=== PATIENT | male | born 1960 | race Caucasian/White ===

== ENCOUNTER 2021-05-26 08:30 | Emergency (ER) | payer BC ==
--- NOTE | 2021-05-26 09:35 | EDM.PDOC ---
ED HPI GENERAL MEDICAL PROBLEM - General Chief Complaint: Respiratory Problem Stated Complaint: COUGH/COVID SYMPTOMS Time Seen by Provider: 05/26/21 09:15 Source of Information: Reports: Patient History Limitations: Reports: No Limitations - History of Present Illness INITIAL COMMENTS - FREE TEXT/NARRATIVE: Patient is a 60-year-old male with a past medical history of ID, A. fib, DVT presenting with a chief complaint of not feeling well. Duration of symptoms 8 to 10 days. Patient states symptoms have included fatigue, lethargy, scratchy throat, mild cough which is nonproductive. Patient has been taking some Tylenol for the symptoms without any relief. Patient specifically denies headache, difficulty breathing, shortness of breath, chest pain, abdominal pain, nausea, v omiting, diarrhea, loss of appetite, urinary symptoms. Patient did not receive Covid vaccination. No known sick contacts. Throat Pain Score (Numeric/FACES): 1 - Related Data Allergies Allergy/AdvReac Type Severity Reaction Status Date / Time amiodarone Allergy Unknown Other Verified 05/26/21 08:46 amlodipine Allergy Swelling Verified 05/26/21 08:47 lisinopril Allergy Rash Verified 05/26/21 08:46 Home Meds: Home Meds Aspirin/Calcium Carbonate/Mag [Aspirin Buffered 325 mg Tab] 325 mg PO DAILY 12/01/13 [History] Fish Oil/[place]-3 Fatty Acids [Fish Oil 1,000 MG] 1 gm PO DAILY 12/01/13 [History] Glucosam/Chondroitin/Diet Cb25 [Trepadone Capsule] 1 each PO DAILY 12/01/13 [History] Metoprolol Succinate [Toprol XL] 25 mg PO DAILY 12/01/13 [History] Multivitamin [Multi-Vitamin Daily] 1 each PO DAILY 12/01/13 [History] Nitroglycerin [Nitrostat] 0.4 mg SL PRN 12/01/13 [History] Vit C/Ascorbate Calcium,Sodium [Vitamin C] 500 mg PO DAILY 12/01/13 [History] atorvaSTATin Calcium [Atorvastatin Calcium] 20 mg PO DAILY 12/01/13 [History] Diltiazem [Cardizem CD] 180 mg PO DAILY@0600 #30 cap.cd 12/04/13 [Rx] Enoxaparin [Lovenox] 90 mg SUBCUT Q12H #4 syringe 12/04/13 [Rx] Warfarin [Coumadin] 7.5 mg PO DAILY@1800 #30 tablet 12/04/13 [Rx] Past Medical History HEENT History: Reports: Impaired Vision Other HEENT History: wears eyeglasses. Cardiovascular History: Reports: Afib, Blood Clots/VTE/DVT, High Cholesterol, Hypertension, ID Other Cardiovascular History: pericarditis. Respiratory History: Reports: Pneumonia, Recurrent Musculoskeletal History: Reports: Back Pain, Chronic, Fracture - Infectious Disease History Infectious Disease History: Reports: Measles, Mumps, Shingles - Past Surgical History Musculoskeletal Surgical History: Reports: Other (See Below) Other Musculoskeletal Surgeries/Procedures:: neck and back surgeries. Social & Family History - Tobacco Use Tobacco Use Status *Q: Never Tobacco User Second Hand Smoke Exposure: No - Caffeine Use Caffeine Use: Reports: Coffee - Alcohol Use Days Per Week of Alcohol Use: 7 Number of Drinks Per Day: 1 Total Drinks Per Week: 7 - Recreational Drug Use Recreational Drug Use: No ED ROS GENERAL - Review of Systems Review Of Systems: See Below Free Text/Narrative/Comment: In addition to that documented in the HPI above, the additional ROS was obtained: Constitutional: Denies fevers or chills Eyes: Denies vision changes ENMT: Denies sore throat CV: Denies chest pain Resp: Denies SOB GI: Denies vomiting or diarrhea : Denies painful urination MSK: Denies recent trauma Skin: Denies new rashes Neuro: Denies new numbness or tingling or weakness Endocrine: Denies unexpected weight loss Heme: Denies bleeding disorders ED EXAM, GENERAL - Physical Exam Exam: See Below Free Text/Narrative:: I have reviewed the triage vital signs Const: Well nourished, well developed, appears stated age Eyes: Pupils Equal and reactive to light bilaterally, no conjunctival injection HENT: No signs of trauma or swelling, Neck supple without meningismus CV: Regular Rate Rhythm, Warm, well-perfused extremities RESP: Unlabored respiratory effort GI: soft, non-tender, non-distended, no masses MSK: No gross deformities appreciated Skin: Warm, dry. 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 Sensation and motor function of extremities grossly intact. Psych: Appropriate mood and affect. Course - Vital Signs Last Recorded V/S: Last Vital Signs Temp 36.4 C 05/26/21 08:40 Pulse 70 10/07/21 08:40 Resp 14 05/26/21 08:40 BP 156/87 H 05/26/21 08:40 Pulse Ox 97 05/26/21 08:40 - Orders/Labs/Meds Labs: Laboratory Tests 05/26/21 05/26/21 05/26/21 Range/Units 09:00 09:54 09:54 WBC 2.63 L (4.23-9.07) K/mm3 RBC 4.61 L (4.63-6.08) M/mm3 Hgb 14.8 D (13.7-17.5) gm/dl Hct 44.8 (40.1-51.0) % MCV 97.2 H D (79.0-92.2) fl MCH 32.1 (25.7-32.2) pg MCHC 33.0 (32.2-35.5) g/dl RDW Std Deviation 47.5 H (35.1-43.9) fL Plt Count 159 L (163-337) K/mm3 MPV 9.5 (9.4-12.3) fl Neut % (Auto) 50.9 (34.0-67.9) % Lymph % (Auto) 31.6 (21.8-53.1) % [place] % (Auto) 14.8 H (5.3-12.2) % Eos % (Auto) 1.5 (0.8-7.0) Baso % (Auto) 0.8 (0.1-1.2) % Neut # (Auto) 1.34 L (1.78-5.38) K/mm3 Lymph # (Auto) 0.83 L (1.32-3.57) K/mm3 [place] # (Auto) 0.39 (0.30-0.82) K/mm3 Eos # (Auto) 0.04 (0.04-0.54) K/mm3 Baso # (Auto) 0.02 (0.01-0.08) K/mm3 Sodium 139 (136-145) mEq/L Potassium 4.4 (3.5-5.1) mEq/L Chloride 104 (98-107) mEq/L Carbon Dioxide 27 (21-32) mEq/L Anion Gap 12.4 (5-15) BUN 12 (7-18) mg/dL Creatinine 0.9 (0.7-1.3) mg/dL Est Cr Clr Drug Dosing 93.41 mL/min Estimated GFR (MDRD) > 60 (>60) mL/min BUN/Creatinine Ratio 13.3 L (14-18) Glucose 102 H (70-99) mg/dL Calcium 9.0 (8.5-10.1) mg/dL Total Bilirubin 0.4 (0.2-1.0) mg/dL AST 44 H (15-37) U/L ALT 59 (16-63) U/L Alkaline Phosphatase 65 (46-116) U/L Total Protein 7.5 (6.4-8.2) g/dl Albumin 3.5 (3.4-5.0) g/dl Globulin 4.0 gm/dL Albumin/Globulin Ratio 0.9 L (1-2) SARS-CoV-2 RNA (ELIZABETH) Positive H (NEGATIVE) Departure - Departure Time of Disposition: 10:38 Disposition: Home, Self-Care 01 Clinical Impression: COVID-19 - Discharge Information *PRESCRIPTION DRUG MONITORING PROGRAM REVIEWED*: Not Applicable *COPY OF PRESCRIPTION DRUG MONITORING REPORT IN PATIENT DANIELLE: Not Applicable Instructions: COVID-19 Referrals: PCP,None [Primary Care Provider] - Forms: ED Department Discharge Sepsis Event Note (ED) - Evaluation Sepsis Screening Result: No Definite Risk - Focused Exam Vital Signs: Vital Signs Temp Pulse Resp BP Pulse Ox 05/26/21 08:40 36.4 C 70 14 156/87 H 97 - Assessment/Plan Assessment:: Patient is a 58-year-old male presented to the emergency room with a chief complaint of generalized weakness, fatigue and scratchy throat. Patient had unremarkable ER course. Remained hemodynamically stable and no evidence of hypoxia or respiratory distress while in the emergency department symptoms concerning for COVID-19 infection. His Covid test was positive here in the emergency room. Laboratory studies are consistent with COVID-19 infection. No evidence of severe anemia, severe electrolyte abnormality or severe dehydration. At this point, patient is about 1.5 weeks out from onset of symptoms. No i ndication for other treatment at this time. Return precautions discussed. Patient urged to self quarantine and inform exposed contacts. Patient agrees with plan of care.
== END 2021-05-26 11:08 | disposition home or self-care (01) ==
LOC: JD.ED 08:30
DX: U07.1 COVID-19 (principal); I25.2 Old myocardial infarction; I48.91 Unspecified atrial fibrillation; E78.00 Pure hypercholesterolemia, unspecified; I10 Essential (primary) hypertension; Z86.718 Personal history of other venous thrombosis and embolism; Z88.8 Allergy status to other drugs, medicaments and biological substances; Z79.82 Long term (current) use of aspirin; Z79.01 Long term (current) use of anticoagulants; Z79.899 Other long term (current) drug therapy
CPT/HCPCS: 36415; 80053; 85025; 99283; U0002